=== PATIENT | male | born 1955 | race Two or more races ===

== ENCOUNTER 2018-04-16 05:42 | Inpatient (IN) ==
[2018-04-16] MEDS ORDERED: Chlorhexidine Gluconate 2% 1 Pack (2 Cloths) TOPICAL ONE (06:24)
[2018-04-16] MEDS ORDERED: Metoprolol Tartrate 25 MG Tablet PO ONE (06:24)
[2018-04-16 06:55] LABS: Prothrombin Time 10.6 sec (9.8-11.6)
[2018-04-16] MEDS ORDERED: Lidocaine 1%/Epinephrine 1:100,000 Inj 30 ML Vial ONE (06:56)
[2018-04-16] MEDS ORDERED: ceFAZolin 2 GM Premix Inj 2 GM/50 ML PIGGYBACK IV.SIG SCH (07:00)
[2018-04-16] MEDS ORDERED: Sodium Chlor 0.9% Inj 500 ML IV.SIG SCH (07:00)
[2018-04-16] MEDS ORDERED: Lidocaine PF 1% Inj 5 ML Syringe OTHER ONE (07:30)
[2018-04-16] MEDS ORDERED: Glycopyrrolate Inj 1 MG/5 ML Syringe IV.PUSH ONE (07:30)
[2018-04-16] MEDS ORDERED: Phenylephrine/NS 1000 MCG/10ML Syringe IV.PUSH ONE (07:30)
[2018-04-16] MEDS ORDERED: Sugammadex Inj 200 MG/2 ML Vial IV.PUSH ONE (11:44)
[2018-04-16] MEDS ORDERED: Morphine Inj 4 MG/ML Vial IV.PUSH PRN (11:48)
[2018-04-16] MEDS ORDERED: Sod Chloride 0.9% Inj 1,000 ML IV.SIG SCH (12:00)
[2018-04-16] MEDS ORDERED: Sodium Chlor 0.9% Inj 1,000 ML IV.SIG SCH (12:00)
[2018-04-16] MEDS ORDERED: Sodium Chloride 0.9% 2 ML Flush PRN IV.FLUSH (12:00)
[2018-04-16] MEDS ORDERED: *Meperidine Inj 25 MG/ML Vial PERIprocedural Use ONLY ONE (12:29)
[2018-04-16] MEDS ORDERED: fentaNYL Citrate Inj 100 MCG/2 ML Ampul ONE ×2 (12:35)
[2018-04-16] MEDS: Ketorolac Inj 30 MG/ML (IVP) Vial IV.PUSH SCH ×2 (12:50→17:03)
--- NOTE | 2018-04-16 12:51 | MP ---
cc: Wali Jones MD , DATE OF OPERATION: 04/16/2018 PREOPERATIVE DIAGNOSIS: Linda 3+4 equals 7 adenocarcinoma of the prostate. POSTOPERATIVE DIAGNOSIS: [place] 3+4 equals 7 adenocarcinoma of the prostate. PROCEDURE PERFORMED: Robotic-assisted laparoscopic radical prostatectomy with bilateral pelvic lymph node dissection. SURGEON: Wali Jones MD HOT BREAD BAKER: Marcus Ham MD ANESTHESIA: General. COMPLICATIONS: None. SPECIMENS: 1. Prostate and seminal vesicles for permanent. 2. Left pelvic lymph nodes for permanent. ESTIMATED BLOOD LOSS: 100 mL. FLUIDS: 1100 mL of crystalloids per anesthesia. DISPOSITION: Stable to recovery. INDICATIONS: The patient is a 62-year-old male with a history of an elevated PSA. He underwent a transrectal ultrasound and prostate biopsy and was found to have intermediate risk prostate cancer with Linda 3+4 equals 7 disease. Treatment options were discussed and based on his good overall general health and age, he elected to proceed with a robotic prostatectomy. After the risks, benefits and alternatives were explained to the patient including the risk of urinary incontinence, erectile dysfunction, positive margins and rectal injury, he elected to proceed. Informed consent was obtained. DETAILS OF PROCEDURE: The patient was properly identified, brought back to the operating room and was laid supine on the operating table. A proper timeout was performed. Under the direction of anesthesiology, the patient was intubated and induced under general anesthetic. Preoperative antibiotics in the form of Ancef 2 grams IV were given within 1 hour of the start of the procedure. The patient was then placed in a dorsal lithotomy position and steep Trendelenburg. All pressure points were padded. He was then prepped and draped in a normal sterile surgical fashion. A 16 Spanish Barrientos catheter was placed on the field under sterile technique. Concentrated yellow urine did return. At this time, a stab incision was made just to the right of his umbilicus and superior. A Veress needle was then used to gain access to the abdominal cavity and pneumoperitoneum was achieved. I then extended the incision approximately 2 cm and placed the 12 mm long camera port into the abdominal cavity blindly. The laparoscope was then inserted in the abdominal cavity. The abdominal cavity was carefully inspected. There was no evidence of any bleeding or intra-abdominal injury. No other adhesions as well were seen. At this time, the 5 remaining ports were then placed under direct visualization, including three 8 mm robotic ports, 2 on the left-hand side and 1 on the right-hand side, a 12 mm assistant corporate secretary port and a 5 mm suction port triangulated between the right-hand robotic port and the camera. The robot was then docked into position. I then took down the sigmoid colon on the left side with cold cut scissors to help open up the pelvis. At this point, I then entered the retropubic space by dropping the bladder. The vas deferens was divided on each side. At this point, I then removed the periprostatic fat to expose the endopelvic fascia and the prostate itself. The superficial dorsal vein complex was divided with electrocautery. I then entered the endopelvic fascia on each side to dissect the pelvic musculature off of the prostate towards the apex of the prostate. At this time, I was then able to notice I came across the DVC complex. The puboprostatic ligaments were divided as well. A 1-0 V-Loc stitch was then used to ligate the dorsal vein complex and was used as a suspension stitch as I brought the stitch through the ostium of the pubic symphysis. At this point, I carefully developed the anterior bladder neck down to expose the level of the urethra. The Barrientos catheter was then retracted into the prostatic urethra. There was no evidence of any median lobe. The catheter was then retracted anteriorly towards the pubic symphysis and locked down with the third arm to provide significant retraction exposure for the posterior bladder neck. At this time, the plane was easily developed and I was able to divide the posterior bladder neck down to Denonvilliers fascia. I then entered the posterior Denonvilliers fascia where I encountered the seminal vesicles. Each seminal vesicle was then dissected out in its entirety. The vas deferens was divided on each side and the tips of the seminal vessels were carefully divided. This exposed the posterior Denonvilliers and the rectum. I then developed a space on the posterior portion of the prostate all the way towards the apex of the prostate. The pedicles on each side were then taken with the robotic vessel sealer. The rectum remained posterior. There was no obvious rectal injury at this time. I then came anteriorly through the DVC and through the urethra itself until the prostate was completely freed. It was then placed in the right pericolic gutter for later removal. The rectum was carefully inspected. There was no evidence of any injury at this time. Hemostasis was excellent. At this point, I then turned my attention to the bilateral lymph node dissection. I started on the patient's left side. The patient had a small amount of tissue on his left obturator nerve, but his obturator nerve was visualized right from the start. This tissue was carefully removed with blunt dissection. However, he has several significant arteries and accessory veins coming off of his iliac vessels surrounding this area, so there was not much of a safe lymph node dissection that could be performed; however, he did not have that much tissue. These left pelvic lymph nodes were then collected to be sent off for routine analysis by the pathologist. A similar dissection was done on the right side, but again, he had very minimal tissue with symmetric vessels as he did on the left side. Therefore, a small amount of tissue was removed on the right side, but the obturator was pretty much skeletonized in its natural environment. At this point, I performed a watertight anastomosis using a double armed 4-0 Stratafix suture. The bladder neck did not need to be reconstructed. It was a very tight bladder neck. The watertight anastomosis went well. A 20 Spanish catheter was then placed under direct visualization into the bladder and secured with 5 mL. It was irrigated with no evidence of any bladder leak. The sutures were then tied together and cinched down. Then, 3 grams of Kassidy were used and placed in the pelvis for hemostatic purposes. A DANYELL drain was then placed through the robotic port in the third arm and secured with 3-0 nylon. The prostate was then extracted through the camera incision and it was closed with 2 separate 0 Vicryl interrupted sutures. The remaining skin incisions were then closed with 4-0 Monocryl. The catheter was irrigated and was crystal clear with no clots. At this time, this concluded the procedure. Sponge, needle and instrument counts were correct at the end of the case. The patient was extubated and sent to recovery in stable condition. He will be transferred to the floor for routine postoperative care. MD AILYN Grissom/iram , 12:02 PM , 12:15 PM
[2018-04-16] MEDS: Pantoprazole Inj 40 MG Vial IV.PUSH SCH (12:54)
[2018-04-16] MEDS ORDERED: *morphine SULFATE 8 MG/ML PERIprocedure ONLY ONE (13:16)
[2018-04-16 13:26] LABS: Baso % (Auto) 0.2 % (0.0-2.0); Eos % (Auto) 0.1 % (0.0-4.0); Hematocrit 37.1 % (39.0-51.0); Hemoglobin 12.7 gm/dL (13.0-17.0); Lymph % (Auto) 7.3 % (9.0-44.0); Mean Corpuscular HGB Conc 34.3 % (32.0-36.0); Mean Corpuscular Volume 93.3 fL (80.0-100.0); Mean Platelet Volume 9.4 fL (7.0-11.0); Mono # (Auto) 0.6 th/mm3 (0.0-0.9); Mono % (Auto) 4.4 % (0.0-8.0); Neut # (Auto) 12.5 th/mm3 (1.8-7.7); Platelet Count 250 th/mm3 (150-450); Red Blood Count 3.98 mil/mm3 (4.50-5.90); Red Cell Distribution Width 12.9 % (11.6-17.2); White Blood Count 14.2 th/mm3 (4.0-11.0)
[2018-04-16 13:39] LABS: Calcium 8.5 mg/dL (8.5-10.1); Carbon Dioxide 23.9 meq/L (21.0-32.0); Potassium 3.9 meq/L (3.5-5.1)
[2018-04-16] MEDS ORDERED: *morphine SULFATE 4 MG/ML PERIprocedure ONLY ONE (14:49)
--- NOTE | 2018-04-16 15:46 | ECG ---
Date Performed: 04/16/2018 Time Performed: 06:55:55 PTAGE: 62 years EKG: Sinus rhythm MARKED LEFT AXIS DEVIATION PATTERN CONSISTENT WITH PULMONARY DISEASE ABNORMAL ECG NO PREVIOUS TRACING DOCTOR: Agatha Sales Interpretating Date/Time 04/16/2018 15:45:37
[2018-04-16] MEDS: Gabapentin 300 MG Capsule PO SCH (17:05)
[2018-04-16] MEDS: Docusate Sodium 100 MG Capsule PO SCH (20:04)
[2018-04-16] MEDS: Mirtazapine 15 MG Tablet PO SCH (20:04)
[2018-04-16] MEDS: Sodium Chloride 0.9% 2 ML Flush BID IV.FLUSH SCH (20:05)
[2018-04-17] MEDS: Ketorolac Inj 30 MG/ML (IVP) Vial IV.PUSH SCH ×3 (00:42→12:45)
[2018-04-17 08:29] LABS: Hematocrit 37.7 % (39.0-51.0); Hemoglobin 12.4 gm/dL (13.0-17.0); Mean Corpuscular HGB Conc 32.8 % (32.0-36.0); Mean Corpuscular Hemoglobin 31.5 pg (27.0-34.0); Mean Platelet Volume 9.6 fL (7.0-11.0); Platelet Count 260 th/mm3 (150-450); Red Blood Count 3.93 mil/mm3 (4.50-5.90)
[2018-04-17] MEDS: Docusate Sodium 100 MG Capsule PO SCH ×2 (08:48→20:25)
[2018-04-17] MEDS: Venlafaxine XR 75 MG Capsule PO SCH (08:48)
[2018-04-17] MEDS: Gabapentin 300 MG Capsule PO SCH ×3 (08:48→17:34)
[2018-04-17] MEDS: Sodium Chloride 0.9% 2 ML Flush BID IV.FLUSH SCH ×2 (08:49→20:27)
[2018-04-17 09:03] LABS: Anion Gap 8 meq/L (5-15); Blood Urea Nitrogen 11 mg/dL (7-18); Carbon Dioxide 26.1 meq/L (21.0-32.0); Chloride 111 meq/L (98-107); Glomerular Filtration Rate Greater Than 89 mL/min (>89); Glucose,Random 110 mg/dL (74-106); Potassium 4.1 meq/L (3.5-5.1); Sodium 145 meq/L (136-145)
[2018-04-17] MEDS: Pantoprazole Inj 40 MG Vial IV.PUSH SCH (12:45)
--- NOTE | 2018-04-17 15:34 | P.PNURO ---
Subjective Patient symptoms today: Pt was seen at bedside. s/p robotic prostatectomy yesterday. In general feels ok. Dallin has 7/10 pain and need pain meds to manage. No f/c/n/v, no hematuris. DANYELL output is minimal but he leaks around it, dressing was changed. Barrientos is in place, urine is yellow color. No flatus or BM yet. Started reg diet at lunch, tolerates it well. Not ambulated yet Objective Vital Signs: Vital Signs 04/16/18 20:00 04/17/18 00:00 04/17/18 04:00 Temperature 97.7 F 97.7 F 97.0 F L Pulse Rate 86 86 76 Respiratory Rate 17 17 17 Blood Pressure 142/69 H 119/57 L 120/62 Pulse Oximetry 97 97 98 04/17/18 08:00 04/17/18 12:00 Temperature 97.2 F L 97.6 F Pulse Rate 68 77 Respiratory Rate 16 18 Blood Pressure 113/56 L 123/58 L Pulse Oximetry 93 L 97 Intake & Output 04/16/18 04/17/18 04/17/18 18:59 06:59 18:59 Intake Total 2890 / 2890 580 / 580 805 / 805 Output Total 2850 / 2850 3080 / 3080 Balance 40 / 40 -2500 / -2500 805 / 805 Weight 92.1 kg Intake: IV 2150 / 2150 100 / 100 805 / 805 LR 1000 mL Inj 1,000 ML @ 30 1000 / 1000 mls/hr IV.SIG .Q24H ROSCOE Rx#: [id number] NS Inj 1,000 ML @ Wide Open IV. 1000 / 1000 SIG BOLUS ROSCOE Rx#:[id number] NS Inj 1,000 ML @ 150 mls/hr IV 705 / 705 .SIG .Q10H ROSCOE Rx#:[id number] Ancef 2 GM Premix Inj 2 gm In 50 / 50 50 ml @ 150 mls/hr IV.SIG SALES ACCOUNT DIRECTOR ROSCOE Rx#:[id number] Ancef Inj 1,000 MG In NS Inj 100 / 100 100 / 100 100 / 100 100 ML @ 200 mls/hr IV.SIG Q8H ROSCOE Rx#:[id number] Oral 240 / 240 480 / 480 Anesthesia Amount 500 / 500 Output: Urine 1300 / 1300 Estimated Blood Loss 100 / 100 Urine Amount (Catheter) 1400 / 1400 3000 / 3000 Indwelling Urethral Catheter 1400 / 1400 3000 / 3000 Wound Drainage 50 / 50 80 / 80 # 1 LEFT Lateral Abdomen 50 / 50 80 / 80 Result Diagrams: 04/17/18 07:38 04/17/18 07:38 Medications and IVs: Active Medications Generic Name Dose Route Start Last Admin Trade Name Freq PRN Reason Stop Dose Admin Docusate Sodium 100 mg 04/16/18 21:00 04/17/18 08:48 Colace PO 100 mg BID ROSCOE Administration Gabapentin 300 mg 04/16/18 18:00 04/17/18 12:45 Neurontin PO 300 mg TID ROCSOE Administration Sodium Chloride 500 mls @ 30 mls/hr 04/16/18 07:00 04/16/18 07:10 Ns Inj IV.SIG Not Given .Q10H ROSCOE Sodium Chloride 1,000 mls @ 0 mls/hr 04/16/18 12:00 04/16/18 13:50 Ns Inj IV.SIG Infused BOLUS ROSCOE Infusion Wide Open Levothyroxine Sodium 25 mcg 04/17/18 06:00 04/17/18 06:20 Synthroid PO 25 mcg DAILY@0600 ROSCOE Administration Mirtazapine 15 mg 04/16/18 21:00 04/16/18 20:04 Remeron PO 15 mg HS ROSCOE Administration Ondansetron HCl 4 mg 04/16/18 11:48 Zofran Inj IV.PUSH Q6H PRN NAUSEA OR VOMITING Oxycodone/Acetaminophen 2 tab 04/16/18 11:47 04/17/18 12:46 Percocet 5/325 Mg PO 2 tab Q4H PRN Administration PAIN SCALE 6 TO 10 Oxycodone/Acetaminophen 1 tab 04/16/18 11:49 Percocet 5/325 Mg PO Q4H PRN PAIN SCALE 3 TO 5 Pantoprazole Sodium 40 mg 04/16/18 12:00 04/17/18 12:45 Protonix Inj IV.PUSH 40 mg Q24H ROSCOE Administration Pravastatin Sodium 10 mg 04/17/18 09:00 04/17/18 08:48 Pravachol PO 10 mg DAILY ROSCOE Administration Sodium Chloride 2 ml 04/16/18 21:00 04/17/18 08:49 Ns Flush IV.FLUSH 2 ml BID ROSCOE Administration Sodium Chloride 2 ml 04/16/18 12:00 Ns Flush IV.FLUSH PRN PRN FLUSH AFTER USING IV ACCESS Venlafaxine HCl 150 mg 04/17/18 09:00 04/17/18 08:48 Effexor Xr PO 150 mg DAILY ROSCOE Administration Objective Remarks: NAD RRR Clear Lungs Abd soft slightly distended NT. Incisions healing well c/d/i DANYELL drain in place Assessment and Plan - Plan 62y.o M POD 31 s/p robotic prostatectomy - Continue current management - Labs at AM - Reg diet - Pain meds prn - OOB to Ambulate - If in bed use IS - DVT prophylaxis - Change DANYELL dressing prn Possibly d/c tomorrow Discussed Condition With: RN and Dr Robert GERMAIN attending
[2018-04-17] MEDS: Mirtazapine 15 MG Tablet PO SCH (20:25)
[2018-04-17] MEDS: HYDROmorphone PF Inj 2 MG/ML Vial IV.PUSH PRN (22:59)
[2018-04-18] MEDS: HYDROmorphone PF Inj 2 MG/ML Vial IV.PUSH PRN ×3 (05:48→19:26)
[2018-04-18 07:46] LABS: Baso # (Auto) 0.1 th/mm3 (0.0-0.2); Baso % (Auto) 0.5 % (0.0-2.0); Eos # (Auto) 0.1 th/mm3 (0.0-0.4); Eos % (Auto) 1.1 % (0.0-4.0); Hematocrit 36.3 % (39.0-51.0); Hemoglobin 12.3 gm/dL (13.0-17.0); Lymph # (Auto) 2.7 th/mm3 (1.0-4.8); Lymph % (Auto) 21.3 % (9.0-44.0); Mean Corpuscular HGB Conc 33.8 % (32.0-36.0); Mean Corpuscular Hemoglobin 32.1 pg (27.0-34.0); Mean Corpuscular Volume 95.1 fL (80.0-100.0); Mean Platelet Volume 9.9 fL (7.0-11.0); Mono % (Auto) 7.8 % (0.0-8.0); Neut # (Auto) 8.7 th/mm3 (1.8-7.7); Neut % (Auto) 69.3 % (16.0-70.0); Platelet Count 257 th/mm3 (150-450); Red Blood Count 3.81 mil/mm3 (4.50-5.90); Red Cell Distribution Width 13.1 % (11.6-17.2); White Blood Count 12.5 th/mm3 (4.0-11.0)
[2018-04-18 08:19] LABS: Anion Gap 7 meq/L (5-15); Blood Urea Nitrogen 12 mg/dL (7-18); Calcium 8.2 mg/dL (8.5-10.1); Carbon Dioxide 27.2 meq/L (21.0-32.0); Chloride 109 meq/L (98-107); Glomerular Filtration Rate Greater Than 89 mL/min (>89); Glucose,Random 89 mg/dL (74-106); Potassium 3.8 meq/L (3.5-5.1); Sodium 143 meq/L (136-145)
[2018-04-18] MEDS: Venlafaxine XR 75 MG Capsule PO SCH (08:19)
[2018-04-18] MEDS: Gabapentin 300 MG Capsule PO SCH ×3 (08:19→17:33)
[2018-04-18] MEDS: Docusate Sodium 100 MG Capsule PO SCH ×2 (08:21→20:39)
[2018-04-18] MEDS: Sodium Chloride 0.9% 2 ML Flush BID IV.FLUSH SCH ×2 (10:38→20:39)
[2018-04-18] MEDS: Pantoprazole Inj 40 MG Vial IV.PUSH SCH (12:12)
[2018-04-18] MEDS: Ketorolac Inj 30 MG/ML (IVP) Vial IV.PUSH SCH ×2 (13:53→20:38)
--- NOTE | 2018-04-18 14:06 | P.PNURO ---
Subjective Patient symptoms today: Pt was seen at the bedside. c/o abdominal pain up to 10/10 earlier today Currently feels a little better after pain meds. Tolerating diet well. no N/V. no fever. States that pain is like cramps due to boating, no flatus or BM yet. Minimal output from DANYELL. DANYELL Cr is normal. Telemetry called about ?? heart block, pt denies chest pain but we will order ECG Objective Vital Signs: Vital Signs 04/17/18 16:00 04/17/18 20:00 04/17/18 22:07 Temperature 97.9 F 97.9 F Pulse Rate 82 79 Respiratory Rate 18 18 20 Blood Pressure 118/68 166/72 H Pulse Oximetry 96 95 04/18/18 00:00 04/18/18 00:31 04/18/18 04:00 Temperature 97.8 F 97.2 F L Pulse Rate 85 78 Respiratory Rate 18 20 20 Blood Pressure 139/69 169/81 H Pulse Oximetry 92 L 96 04/18/18 05:51 04/18/18 08:00 04/18/18 11:38 Temperature 97.7 F 97.3 F L Pulse Rate 78 74 Respiratory Rate 20 15 16 Blood Pressure 147/77 H 150/83 H Pulse Oximetry 94 L 96 Intake & Output 04/17/18 04/18/18 04/18/18 18:59 06:59 18:59 Intake Total 805 / 805 Output Total 1999 Balance 800 / 800 -1999 -1999 Weight 100.4 kg Intake: IV 805 / 805 NS Inj 1,000 ML @ 150 mls/hr IV 705 / 705 .SIG .Q10H ROSCEO Rx#:[id number] Ancef Inj 1,000 MG In NS Inj 100 / 100 100 ML @ 200 mls/hr IV.SIG Q8H ROSCOE Rx#:[id number] Output: Urine 1999 Wound Drainage # 1 LEFT Lateral Abdomen Other: Date of Last Bowel Movement 04/16/18 Result Diagrams: 04/18/18 06:19 04/18/18 06:19 Medications and IVs: Active Medications Generic Name Dose Route Start Last Admin Trade Name Freq PRN Reason Stop Dose Admin Docusate Sodium 100 mg 04/16/18 21:00 04/18/18 08:21 Colace PO Not Given BID ROSCOE Gabapentin 300 mg 04/16/18 18:00 04/18/18 12:12 Neurontin PO 300 mg TID ROSCOE Administration Hydromorphone HCl 2 mg 04/17/18 22:48 04/18/18 10:35 Dilaudid Pf Inj IV.PUSH 2 mg Q3H PRN Administration BREAKTHROUGH PAIN Sodium Chloride 500 mls @ 30 mls/hr 04/16/18 07:00 04/16/18 07:10 Ns Inj IV.SIG Not Given .Q10H ROSCOE Sodium Chloride 1,000 mls @ 0 mls/hr 04/16/18 12:00 04/16/18 13:50 Ns Inj IV.SIG Infused BOLUS RSOCOE Infusion Wide Open Ketorolac Tromethamine 30 mg 04/18/18 14:00 Toradol Inj IV.PUSH 04/19/18 20:01 Q6H ROSCOE Levothyroxine Sodium 25 mcg 04/17/18 06:00 04/18/18 05:48 Synthroid PO 25 mcg DAILY@0600 ROSCOE Administration Mirtazapine 15 mg 04/16/18 21:00 04/17/18 20:25 Remeron PO 15 mg HS ROSCOE Administration Ondansetron HCl 4 mg 04/16/18 11:48 Zofran Inj IV.PUSH Q6H PRN NAUSEA OR VOMITING Oxycodone/Acetaminophen 2 tab 04/16/18 11:47 04/18/18 09:21 Percocet 5/325 Mg PO 2 tab Q4H PRN Administration PAIN SCALE 6 TO 10 Oxycodone/Acetaminophen 1 tab 04/16/18 11:49 Percocet 5/325 Mg PO Q4H PRN PAIN SCALE 3 TO 5 Pantoprazole Sodium 40 mg 04/16/18 12:00 04/18/18 12:12 Protonix Inj IV.PUSH 40 mg Q24H ROSCOE Administration Pravastatin Sodium 10 mg 04/17/18 09:00 04/18/18 08:20 Pravachol PO 10 mg DAILY ROSCOE Administration Sodium Chloride 2 ml 04/16/18 21:00 04/18/18 10:38 Ns Flush IV.FLUSH 2 ml BID ROSCOE Administration Sodium Chloride 2 ml 04/16/18 12:00 Ns Flush IV.FLUSH PRN PRN FLUSH AFTER USING IV ACCESS Tramadol HCl 100 mg 04/18/18 13:00 04/18/18 13:38 Ultram PO 100 mg TID ROSCOE Administration Venlafaxine HCl 150 mg 04/17/18 09:00 04/18/18 08:19 Effexor Xr PO 150 mg DAILY ROSCOE Administration Objective Remarks: NAD RRR Clear Lungs Abd soft, + distended. tenderness mostly around incisions. Incisions healing well c/d/i DANYELL drain in place, minimal output Assessment and Plan - Plan 62y.o M POD 31 s/p robotic prostatectomy - Continue current management - Simethicone - EKG due to a message for telemetry for heart block - Reg diet - Pain meds prn - OOB to Ambulate - If in bed use IS - DVT prophylaxis - Change DANYELL dressing prn if soaked Possibly d/c tomorrow Discussed Condition With: Dr Robert GERMAIN attending
[2018-04-18] MEDS ORDERED: Simethicone 80 MG Chew Tablet PO PRN (15:00)
[2018-04-18] MEDS: Mirtazapine 15 MG Tablet PO SCH (20:39)
[2018-04-19] MEDS: HYDROmorphone PF Inj 2 MG/ML Vial IV.PUSH PRN ×2 (00:58→06:09)
[2018-04-19] MEDS: Ketorolac Inj 30 MG/ML (IVP) Vial IV.PUSH SCH ×4 (01:00→20:15)
[2018-04-19] MEDS: Gabapentin 300 MG Capsule PO SCH ×3 (08:33→18:10)
[2018-04-19] MEDS: Venlafaxine XR 75 MG Capsule PO SCH (08:35)
[2018-04-19] MEDS: Docusate Sodium 100 MG Capsule PO SCH ×2 (08:52→20:15)
[2018-04-19] MEDS: Pantoprazole Inj 40 MG Vial IV.PUSH SCH (12:39)
--- NOTE | 2018-04-19 12:39 | P.PNURO ---
Subjective Patient symptoms today: Pt was seen at bedside. No new issues, still c/o bloating related abd pain. + flatus, no BM yet. Tolerates diet well. no f/c/n/v. DANYELL drained removed. Ambulates but not much. Encouraged him to ambulate more. EKG is ok. Discussed with pt discharge planning for later today but he is asking to stay overnight. I agreed if stable as now to d/c tomorrow AM Objective Vital Signs: Vital Signs 04/18/18 16:00 04/18/18 20:00 04/18/18 21:43 Temperature 97.6 F 97.6 F Pulse Rate 72 80 65 Respiratory Rate 18 21 Blood Pressure 165/80 H 200/100 H 134/85 Pulse Oximetry 95 98 04/18/18 22:14 04/19/18 00:00 04/19/18 01:03 Temperature 97.9 F Pulse Rate 63 Respiratory Rate 20 16 20 Blood Pressure 188/90 H Pulse Oximetry 95 04/19/18 01:50 04/19/18 04:46 04/19/18 05:24 Temperature 97.3 F L Pulse Rate 76 66 Respiratory Rate 16 20 Blood Pressure 155/90 H 143/77 H Pulse Oximetry 96 04/19/18 08:00 04/19/18 11:51 Temperature 97.9 F 98.1 F Pulse Rate 80 82 Respiratory Rate 14 14 Blood Pressure 178/93 H 160/97 H Pulse Oximetry 96 97 Intake & Output 04/18/18 04/19/18 04/19/18 18:59 06:59 18:59 Intake Total 240 / 240 Output Total 1020 / 1020 680 / 680 Balance -1020 / -1020 -440 / -440 Weight 98 kg Intake: Oral 240 / 240 Output: Urine Amount (Catheter) 1000 / 1000 680 / 680 Indwelling Urethral Catheter 1000 / 1000 680 / 680 Wound Drainage # 1 LEFT Lateral Abdomen Result Diagrams: 04/18/18 06:19 04/18/18 06:19 Medications and IVs: Active Medications Generic Name Dose Route Start Last Admin Trade Name Freq PRN Reason Stop Dose Admin Docusate Sodium 100 mg 04/16/18 21:00 04/19/18 08:52 Colace PO Not Given BID ROSCOE Gabapentin 300 mg 04/16/18 18:00 04/19/18 08:33 Neurontin PO 300 mg TID ROSCOE Administration Hydromorphone HCl 2 mg 04/17/18 22:48 04/19/18 06:09 Dilaudid Pf Inj IV.PUSH 2 mg Q3H PRN Administration BREAKTHROUGH PAIN Sodium Chloride 500 mls @ 30 mls/hr 04/16/18 07:00 04/16/18 07:10 Ns Inj IV.SIG Not Given .Q10H ROSCOE Sodium Chloride 1,000 mls @ 0 mls/hr 04/16/18 12:00 04/16/18 13:50 Ns Inj IV.SIG Infused BOLUS ROSCOE Infusion Wide Open Ketorolac Tromethamine 30 mg 04/18/18 14:00 04/19/18 01:00 Toradol Inj IV.PUSH 04/19/18 20:01 30 mg Q6H ROSCOE Administration Levothyroxine Sodium 25 mcg 04/17/18 06:00 04/19/18 05:29 Synthroid PO 25 mcg DAILY@0600 ROSCOE Administration Mirtazapine 15 mg 04/16/18 21:00 04/18/18 20:39 Remeron PO 15 mg HS ROSCOE Administration Ondansetron HCl 4 mg 04/16/18 11:48 Zofran Inj IV.PUSH Q6H PRN NAUSEA OR VOMITING Oxycodone/Acetaminophen 2 tab 04/16/18 11:47 04/19/18 05:29 Percocet 5/325 Mg PO 2 tab Q4H PRN Administration PAIN SCALE 6 TO 10 Oxycodone/Acetaminophen 1 tab 04/16/18 11:49 Percocet 5/325 Mg PO Q4H PRN PAIN SCALE 3 TO 5 Pantoprazole Sodium 40 mg 04/16/18 12:00 04/18/18 12:12 Protonix Inj IV.PUSH 40 mg Q24H ROSCOE Administration Pravastatin Sodium 10 mg 04/17/18 09:00 04/19/18 08:35 Pravachol PO 10 mg DAILY ROSCOE Administration Simethicone 80 mg 04/18/18 15:00 04/18/18 23:43 Mylicon Chew PO 80 mg Q8H PRN Administration ABDOMINAL CRAMPING Sodium Chloride 2 ml 04/16/18 21:00 04/18/18 20:39 Ns Flush IV.FLUSH 2 ml BID ROSCOE Administration Sodium Chloride 2 ml 04/16/18 12:00 Ns Flush IV.FLUSH PRN PRN FLUSH AFTER USING IV ACCESS Tramadol HCl 100 mg 04/18/18 13:00 04/19/18 08:33 Ultram PO 100 mg TID ROSCOE Administration Venlafaxine HCl 150 mg 04/17/18 09:00 04/19/18 08:35 Effexor Xr PO 150 mg DAILY ROSCOE Administration Objective Remarks: NAD RRR Clear Lungs Abd soft, slightly distended. tenderness mostly around incisions. Incisions healing well c/d/i Assessment and Plan - Plan 62y.o M POD # 4 s/p robotic prostatectomy - Continue current management - Simethicone, stool softner - Reg diet - Pain meds prn - OOB to Ambulate - If in bed use IS - DVT prophylaxis Possibly d/c tomorrow Discussed Condition With: Dr Robert GERMAIN attending and pt's RN
[2018-04-19] MEDS: Sodium Chloride 0.9% 2 ML Flush BID IV.FLUSH SCH ×2 (12:41→20:16)
--- NOTE | 2018-04-19 14:52 | P.DCO ---
- Diagnosis (1) Prostate cancer Status: Acute - Home Health Nursing Order: Barrientos catheter maintenance - Case Management Consult Yes - Certification I have seen patient Oleg Nicole on 04/19/18. My clinical findings support the need for the requested home health care services because: Deconditioned with increased weakness I certify that my clinical findings support that this patient is homebound because: Post-op weakness
--- NOTE | 2018-04-19 17:21 | ECG ---
Date Performed: 04/18/2018 Time Performed: 16:09:47 PTAGE: 62 years EKG: SINUS BRADYCARDIA MARKED LEFT AXIS DEVIATION LOW QRS VOLTAGE IN PRECORDIAL LEADS PATTERN CO NSISTENT WITH PULMONARY DISEASE MINOR NONSPECIFIC T WAVE CHANGE Compared to previous tracing, T WAVE CHANGES ARE SLIGHTLY MORE PROMINENT INFERIORLY AND HR IS SLOWER, OTHERWISE NO SIGNIFICANT CHANGE ABNO RMAL ECG PREVIOUS TRACING : 04/16/2018 06.55 DOCTOR: Ramirez Mason Interpretating Date/Time 04/19/2018 17:20:20
[2018-04-19] MEDS: Mirtazapine 15 MG Tablet PO SCH (20:15)
[2018-04-20 04:13] VITALS: PULSE 63
[2018-04-20 06:01] VITALS: RESP 16
[2018-04-20] MEDS: Docusate Sodium 100 MG Capsule PO SCH (09:01)
[2018-04-20] MEDS: Gabapentin 300 MG Capsule PO SCH (09:01)
[2018-04-20] MEDS: Venlafaxine XR 75 MG Capsule PO SCH (09:01)
[2018-04-20] MEDS: Sodium Chloride 0.9% 2 ML Flush BID IV.FLUSH SCH (09:02)
[2018-04-20 10:07] VITALS: BP 150/74; TEMP 97.5; O2SAT 96
== END 2018-04-20 12:36 | disposition home health service (06) ==
LOC: HSDI 05:42 → N07 15:42
PROVIDERS: ADMIT Urology; ATTEND Urology